=== PATIENT | male | born 1980 | race Two or more races ===

== ENCOUNTER 2023-01-29 08:52 | Emergency (ER) | payer SELFPAY ==
[~2023-01-29] VITALS: Ht 165.1 cm; Wt 81.6 kg
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
--- NOTE | 2023-01-29 09:32 | NUR ---
SEEN BY DR. STEEN AT BED SIDE
[2023-01-29] MEDS ORDERED: CEPH500C2 PO (09:37)
[2023-01-29] MEDS ORDERED: CEPHALEXIN MONOHYDRATE 500 MG CAPSULE PO ONE ×2 (09:39→10:00)
--- NOTE | 2023-01-29 10:00 | NUR ---
RESTING AND ASLEEPY NO SOB NO COUGHING
--- NOTE | 2023-01-29 10:13 | NUR ---
Patient discharged to home in stable condition. Written and verbal after care instructions given. Patient verbalizes understanding of instruction.
[2023-01-29 10:23] VITALS: BP 139/86
== END 2023-01-29 10:35 | disposition home or self-care (01) ==
LOC: ER 09:21
DX: L03.116 Cellulitis of left lower limb (principal); R50.9 Fever, unspecified; Z60.2 Problems related to living alone